=== PATIENT | female | born 1940 | race Caucasian/White ===

== ENCOUNTER → 2018-06-01 | Outpatient (CLI) | payer MEDICARE, OTHER | END | disposition home or self-care (01) | LOC: PCVCIMAG 15:48 | DX: I65.23 Occlusion and stenosis of bilateral carotid arteries (principal); I25.10 Atherosclerotic heart disease of native coronary artery without angina pectoris; E78.5 Hyperlipidemia, unspecified; I47.2 Ventricular tachycardia; E78.00 Pure hypercholesterolemia, unspecified; I10 Essential (primary) hypertension; R94.39 Abnormal result of other cardiovascular function study; Z79.82 Long term (current) use of aspirin; Z79.899 Other long term (current) drug therapy; Z88.8 Allergy status to other drugs, medicaments and biological substances | CPT/HCPCS: 80061; 93005; 93325; 93351; 93880; G0463 ==

== ENCOUNTER → 2019-03-02 | Outpatient (CLI) | payer MEDICARE, OTHER ==
--- NOTE | 2019-03-02 10:05 | PCVCIMAG ---
EXAM: AORTOILIAC DUPLEX INDICATION: Abdominal aortic aneurysm. Peripheral arterial disease. FINDINGS: AORTA: Suprarenal aorta measures maximum diameter of 3.2 cm. There is not a fusiform infrarenal aortic aneurysm. The infrarenal aorta measures maximum diameter of 2.6 cm. No aortic stenosis. RIGHT COMMON ILIAC ARTERY: Maximum diameter is 1.5 cm. No significant stenosis. RIGHT EXTERNAL ILIAC ARTERY: No significant stenosis. LEFT COMMON ILIAC ARTERY: Maximum diameter is 1.9 cm. No significant stenosis. LEFT EXTERNAL ILIAC ARTERY: No significant stenosis. IMPRESSION: No abdominal aortic aneurysm. No aortoiliac stenosis seen. 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 LOC:[id number]
== END | disposition home or self-care (01) ==
LOC: PCVCIMAG 09:34
PROVIDERS: ATTEND Internal Medicine Cardiovascular Disease
DX: I25.10 Atherosclerotic heart disease of native coronary artery without angina pectoris (principal); I73.9 Peripheral vascular disease, unspecified; I10 Essential (primary) hypertension; R00.1 Bradycardia, unspecified; E78.00 Pure hypercholesterolemia, unspecified; I47.2 Ventricular tachycardia; I65.23 Occlusion and stenosis of bilateral carotid arteries; I72.3 Aneurysm of iliac artery; Z79.82 Long term (current) use of aspirin
CPT/HCPCS: 36415; 80061; 93005; 93978; G0463

== ENCOUNTER → 2019-10-07 | Outpatient (CLI) | payer MEDICARE, OTHER ==
--- NOTE | 2019-10-07 15:19 | PCVCIMAG ---
APPROVED REPORT Study performed: 10/07/2019 13:39:00 Exam: Stress Echocardiogram Indication: CAD , Hypertension, Hyperlipidemia,Hx V tach Patient Location: Echo lab Stress Nurse: Glory Gatica RN Room #: 2 Status: routine Ht: 6 ft 0 in HR: 55 bpm BP: 138/78 mmHg Rhythm: NSR Medical History Medical History: CAD non obstructive, HTN, Hyperlipidemia Cardiac Risk Factors: Hx V tach,, Hyperlipidemia Pretest Chest Pain Characteristics: No chest pain Exercise History: Sedentary Procedure The patient underwent an Exercise Stress Test using the [place] Protocol. Blood pressure, heart rate, and EKG were monitored. An Echocardiogram was performed by formulation technician in four stages in quad fashion. At peak stress, four selected images were obtained and placed side by side with resting images for comparison. Stress Test Details Stress Test: Exercise stress testing was performed using a [place] protocol. HR Resting HR: 55 bpmMax Heart Rate (APMHR): 141 bpm Max HR Achieved: 141 bpmTarget HR (85% APMHR): 119 bpm % of APMHR: 100 Recovery HR: 71 bpm HR response to stress: Normal HR response to stress, Frequent short runs of multifocal PVCs are seen BP Resting BP: 138/78 mmHg Max BP: 160/80 mmHg Recovery BP: 134/78 mmHg BP response to stress: Normal blood pressure response to stress. ECG Resting ECG: Sinus Rhythm,bradycardia Stress ECG: Sinus Rhythm with frequent short runs of ventricular abberancies ST Change: Non-ischemic Arrhythmia: Frequent self limiting short runs VT Recovery ECG: Sinus Rhythm with frequent short runs of ventricular abberancies Recovery Arrhythmia: frequent runs VT Clinical Reason for Termination: Maximal effort Stress Symptoms: fatigue Exercise duration: 3 min 58 sec Highest Stage Achieved: Stage 2: 2.5 mph at 12% grade. Exercise capacity: 6.9 METs Overall Exercise Capacity for Age: Poor Scale: Sedentary Angina Score: None No complications. Pre-Stress Echo The resting Echocardiogram showed normal left ventricular contractility with an estimated Ejection Fraction of about 55-60%. The resting Echocardiogram demonstrated wall motion abnormality in the apical seprum and apical inferolateral wall. Post-Stress Echo The stress Echocardiogram showed normal left ventricular contractility with an estimated Ejection Fraction of about 55-60%. Improved contractility is seen in the apical septum and inferolateral farmer post exercise, Conclusion Clinical Response: Non-ischemic Exercise Capacity: Below Average Stress ECG Response: Indeterminant Stress Echo Images: Non-ischemic No clinical, EKG or echocardiographic evidence for ischemia. No echocardiographic evidence for exercise induced ischemia. Normal stress echocardiogram with maximal exercise stress. Normal color doppler. No regurgitation or stenosis present on pulmonic, mitral, tricuspid and aortic valves. <Conclusion> No clinical, EKG or echocardiographic evidence for ischemia. No echocardiographic evidence for exercise induced ischemia. Normal stress echocardiogram with maximal exercise stress. Normal color doppler. No regurgitation or stenosis present on pulmonic, mitral, tricuspid and aortic valves.
== END | disposition home or self-care (01) ==
LOC: PCVCIMAG 13:04
PROVIDERS: ATTEND Internal Medicine Cardiovascular Disease
DX: I25.10 Atherosclerotic heart disease of native coronary artery without angina pectoris (principal); I10 Essential (primary) hypertension; I47.2 Ventricular tachycardia; E78.00 Pure hypercholesterolemia, unspecified; Z88.8 Allergy status to other drugs, medicaments and biological substances
CPT/HCPCS: 93325; 93351